=== PATIENT | female | born 1950 | race Caucasian/White ===

== ENCOUNTER 2019-07-11 06:08 | Day surgery (SDC) | payer MEDICARE, BC ==
[~2019-07-11] VITALS: Ht 160 cm; Wt 123.0 kg
[2019-07-11] MEDS ORDERED: DILTIAZEM 24HR360 MG PO (06:46)
[2019-07-11] MEDS ORDERED: LOSARTAN-HCTZ1 EAC1 PO (06:49)
[2019-07-11] MEDS ORDERED: Bumetanide1 MG PO (06:54)
[2019-07-11] MEDS ORDERED: PEPCID40 MG PO (06:54)
[2019-07-11] MEDS ORDERED: METF500 PO (06:55)
[2019-07-11] MEDS ORDERED: OZEMPIC0.25 MG/0. SC (06:55)
[2019-07-11] MEDS ORDERED: LEVEMIR FL100 UNIT/1 SC (06:56)
--- NOTE | 2019-07-11 08:11 | NUR ---
07/11/19 0811 Lillie Herrera History, Chart, Medications and Allergies reviewed before start of procedure. MONITOR INTACT WITH CONTINUOUS PULSE OXIMETRY AND INTERMITTENT BP.
--- NOTE | 2019-07-11 09:35 | NUR ---
Patient up to Ambulate independently. Gait steady. Discharge instructions reviewed with patient. Patient verbalizes understanding. Copy given to patient to take home. Discharged via wheelchair to private car for ride home WITH SON.
== END 2019-07-11 09:29 | disposition home or self-care (01) ==
LOC: ORSCMMR 06:08 → ORD 08:00 → ORSCMMR 08:00
PROVIDERS: Student in an Organized Health Care Education/Training Program
PROC: 0DBN8ZX Excision of Sigmoid Colon, Via Natural or Artificial Opening Endoscopic, Diagnostic (ICD-10-PCS; principal; 2019-07-11 08:00)
PROC: 0DBC8ZX Excision of Ileocecal Valve, Via Natural or Artificial Opening Endoscopic, Diagnostic (ICD-10-PCS; principal; 2019-07-11 08:00)
PROC: 0DBP8ZX Excision of Rectum, Via Natural or Artificial Opening Endoscopic, Diagnostic (ICD-10-PCS; principal; 2019-07-11 08:00)
PROC: 0DBM8ZX Excision of Descending Colon, Via Natural or Artificial Opening Endoscopic, Diagnostic (ICD-10-PCS; principal; 2019-07-11 08:00)
DX: Z12.11 Encounter for screening for malignant neoplasm of colon (principal); Z85.038 Personal history of other malignant neoplasm of large intestine; D12.4 Benign neoplasm of descending colon; K63.5 Polyp of colon; D12.8 Benign neoplasm of rectum; I10 Essential (primary) hypertension; E11.9 Type 2 diabetes mellitus without complications; E66.01 Morbid (severe) obesity due to excess calories; Z68.42 Body mass index [BMI] 45.0-49.9, adult; Z79.4 Long term (current) use of insulin; Z79.899 Other long term (current) drug therapy
CPT/HCPCS: 82947; 88305; J2704; J7120